=== PATIENT | male | born 1935 | race Caucasian/White ===

== ENCOUNTER → 2016-09-03 17:39 | Emergency (ER) | payer OTHER ==
[~2016-09-03 17:39] MED LIST: ADULT LOW DOSE81 M1 PO; AMLODIPINE BESYL5 MG PO; ASPIR-LOW81 MG PO; BENADRYL25 MG PO; CARBIDOPA-LEVO1 EAC5 PO; CARDIZEM60 MG PO; CARDIZEM90 MG PO; CLONIDINE HCL0.1 MG PO; COUMADIN7.5 MG PO; DIOVAN HCT 31 TABLE1 PO; DULCOLAX STOOL100 MG PO; HYDROCODON-ACE1 EAC7 PO; HYDROCODON-ACE1 EACH PO; OMEPRAZOLE20 MG PO; SPIRIVA1 INHALATI IH; TRUSOPT5 ML BOTH EYES; TYLENOL EXTRA500 MG PO; VITAMIN D1000 INTUN PO; WARFARIN SODIU7.5 MG PO; WARFARIN SODIUM5 MG PO; WARFARIN SODIUM6 MG PO; XALATAN2.5 ML BOTH EYES
== END ==
LOC: EME 17:39
PROC: 5A12012 Performance of Cardiac Output, Single, Manual (ICD-10-PCS; principal; 2016-09-03)
PROC: 0BH17EZ Insertion of Endotracheal Airway into Trachea, Via Natural or Artificial Opening (ICD-10-PCS; 2016-09-03)
DX: I46.2 Cardiac arrest due to underlying cardiac condition (principal); I49.01 Ventricular fibrillation; I10 Essential (primary) hypertension; E78.5 Hyperlipidemia, unspecified; J44.9 Chronic obstructive pulmonary disease, unspecified; G89.29 Other chronic pain; Z79.01 Long term (current) use of anticoagulants; Z79.891 Long term (current) use of opiate analgesic; Z95.0 Presence of cardiac pacemaker
CPT/HCPCS: 99281; 99284